=== PATIENT | female | born 1980 | race Caucasian/White ===

== ENCOUNTER 2018-01-06 11:32 | Inpatient (IN) | payer BC ==
[~2018-01-06] VITALS: Ht 172.7 cm; Wt 104.7 kg
[2018-01-06 12:18] LABS: BASO % 0.3 % (0.0-2.0); EOS % 0.5 % (0-4.0); GRAN # 4.1 (1.4-6.5); GRAN % 63.3 % (42.2-75.2); HEMATOCRIT 43.1 % (37.0-47.0); HEMOGLOBIN 14.6 g/dl (12.5-16.0); LYMPH # 1.6 (1.2-3.4); LYMPH % 25.6 % (20.0-51.0); MEAN CELL VOLUME 88 fl (80.0-100.0); MEAN CORPUSCULAR HEMOGLOBIN 30 pg (27.0-31.0); MEAN CORPUSCULAR HGB CONC 34 g/dl (33.0-37.0); MONO # 0.7 (0.1-0.6); MONO % 10.1 % (1.7-9.3); PLATELET COUNT 275 K/mm3 (130-400); RED BLOOD COUNT 4.91 M/mm3 (4.10-5.30); REDCELL DISTRIBUTION WIDTH-CV 12.6 % (11.5-14.5)
[2018-01-06 12:31] LABS: BILIRUBIN,TOTAL 0.7 mg/dL (0.0-1.0); CALCIUM 8.9 mg/dL (8.4-10.2); CREATININE, serum 0.79 mg/dL (0.52-1.25); POTASSIUM 4.1 mmol/L (3.4-5.0); TOTAL PROTEIN 7.7 gm/dL (6.4-8.2)
[2018-01-06 12:46] LABS: TROPONIN-I 0.045 ng/mL (0.000-0.034)
[2018-01-06 14:41] VITALS: BP 140/81; PULSE 101; TEMP 98.5
[2018-01-06] MEDS ORDERED: LESSINA 28 0.021 TAB PO (15:14)
[2018-01-06 16:41] VITALS: BP 118/79; PULSE 87; TEMP 98.4
[2018-01-06 19:48] VITALS: BP 124/81; PULSE 91; TEMP 97.9
[2018-01-06 23:42] LABS: MUCOUS Present /lpf; PH 5 (5-8); SQUAMOUS EPITHELIAL None Seen /hpf; URINE APPEARANCE Clear; URINE BACTERIA Rare /hpf; URINE BILIRUBIN Negative (NEGATIVE); URINE BLOOD 1+ (NEGATIVE); URINE COLOR Yellow; URINE GLUCOSE Negative (NEGATIVE); URINE KETONE 1+ (NEGATIVE); URINE LEUKOCYTE ESTERASE Negative (NEGATIVE); URINE NITRATE Negative (NEGATIVE); URINE PROTEIN(semi-quant) Negative (NEGATIVE); URINE RBC 0-2 /hpf; URINE UROBILINOGEN Negative (NEGATIVE); URINE WBC 0-2 /hpf
[2018-01-06 23:48] LABS: COLLECTION METHOD CLEAN CATCH
[2018-01-07 00:05] VITALS: BP 118/65; PULSE 73; TEMP 98
[2018-01-07 04:13] VITALS: BP 98/63; PULSE 69
[2018-01-07 06:56] LABS: BASO % 0.2 % (0.0-2.0); EOS % 0.4 % (0-4.0); GRAN # 2.7 (1.4-6.5); GRAN % 55.7 % (42.2-75.2); HEMATOCRIT 38.2 % (37.0-47.0); LYMPH # 1.6 (1.2-3.4); LYMPH % 32.9 % (20.0-51.0); MEAN CELL VOLUME 89 fl (80.0-100.0); MEAN CORPUSCULAR HEMOGLOBIN 29 pg (27.0-31.0); MEAN CORPUSCULAR HGB CONC 33 g/dl (33.0-37.0); MEAN PLATELET VOLUME 9.3 fl (7.4-10.4); MONO # 0.5 (0.1-0.6); MONO % 10.4 % (1.7-9.3); PLATELET COUNT 282 K/mm3 (130-400); RED BLOOD COUNT 4.29 M/mm3 (4.10-5.30); REDCELL DISTRIBUTION WIDTH-CV 12.6 % (11.5-14.5)
[2018-01-07 07:06] LABS: HEMOGLOBIN 12.6 g/dl (12.5-16.0)
[2018-01-07 07:59] VITALS: BP 116/77; PULSE 73; TEMP 97.8
[2018-01-07] MEDS ORDERED: CEFTIN500 MG PO (12:44)
[2018-01-07] MEDS ORDERED: NORCO 325 MG-51 TAB PO (12:46)
== END 2018-01-07 13:22 | disposition home or self-care (01) | DRG 871 ==
LOC: COL.ER 11:32 → MEDICAL 13:39
PROVIDERS: Emergency Medicine; Hospitalist
DX: A41.9 Sepsis, unspecified organism (principal); J18.9 Pneumonia, unspecified organism
CPT/HCPCS: OP; 99223-AI; 99239; J0696; J1170; J1644; J1885; J7030; J7512; Q9967

== ENCOUNTER → 2018-04-04 | Outpatient (CLI) | payer BC ==
[~2018-04-04] MED LIST: CEFTIN500 MG PO; LESSINA 28 0.021 TAB PO; NORCO 325 MG-51 TAB PO
== END ==
LOC: COL.VAS 12:23
DX: I51.89 Other ill-defined heart diseases (principal); R00.0 Tachycardia, unspecified

== ENCOUNTER → 2018-04-19 | Outpatient (CLI) | payer BC | LOC: COL.RAD 10:30 | DX: I10 Essential (primary) hypertension (principal); Z90.49 Acquired absence of other specified parts of digestive tract | CPT/HCPCS: Q9967 ==

== ENCOUNTER → 2019-03-29 | Outpatient (CLI) | payer BC | LOC: MC.RAD 13:56 | DX: Z12.31 Encounter for screening mammogram for malignant neoplasm of breast (principal); Z01.419 Encounter for gynecological examination (general) (routine) without abnormal findings ==